=== PATIENT | male | born 2000 | race Caucasian/White ===

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

== ENCOUNTER → 2018-01-02 | Outpatient (CLI) | payer BC, MEDICAID ==
[~2018-01-02] MED LIST changes: +BREX0.5T; +CLON0.5T13 PO; -CLON0.5T3 PO; -ETOMIDATE IV SOLN 20 MG/10 ML VIAL IV ONE; +FLUO40CA; +LURA120T; -MIDAZOLAM 5 MG/5 ML (VERSED) VIAL IJ ONE; -SUCCINYLCHOLINE INJ 100 MG/5 ML SYR INJ ONE; -fentaNYL INJECTION 100 MCG/2 ML AMP INJ ONE
--- NOTE | 2018-01-02 15:14 | Diagnostic Imaging Report ---
PROCEDURE: US Thyroid. TECHNIQUE: Multiple real-time grayscale images were obtained of the thyroid in various projections. INDICATION: Thyroid nodule. FINDINGS: The right lobe of the thyroid measures 4.5 x 1.7 x 1.9 cm and the left lobe measures 4.1 x 1.4 x 1.6 cm. There is parenchymal heterogeneity but no discrete thyroid mass is identified. IMPRESSION: No discrete thyroid mass is detected. Dictated by: Dictated on workstation # [id number]
== END ==
LOC: RAD 14:03
PROVIDERS: ATTEND Nurse Practitioner Family
DX: E04.1 Nontoxic single thyroid nodule (principal)
CPT/HCPCS: 76536

== ENCOUNTER 2018-02-24 15:40 | Outpatient (RCR) | payer MEDICAID ==
[2018-02-24 16:04] LABS: ABSOLUTE RETIC # 40 10e9/L (24-90); BASOPHILS % (AUTO) 0 % (0-10); EOSINOPHILS # (AUTO) 0.5 10^3/uL (0.0-0.3); EOSINOPHILS % (AUTO) 7 % (0-10); HEMATOCRIT 47 % (40-54); HEMOGLOBIN 16.2 G/DL (13.3-17.7); LYMPHOCYTES # (AUTO) 2.7 X 10^3 (1.0-4.0); LYMPHOCYTES % (AUTO) 36 % (12-44); MEAN CORPUSCULAR HEMOGLOBIN 29 PG (25-34); MEAN CORPUSCULAR HGB CONC 35 G/DL (32-36); MEAN CORPUSCULAR VOLUME 83 FL (80-99); MEAN PLATELET VOLUME 10.7 FL (7.4-10.4); MONOCYTES # (AUTO) 0.3 X 10^3 (0.0-1.0); MONOCYTES % (AUTO) 5 % (0-12); NEUTROPHILS # (AUTO) 3.9 X 10^3 (1.8-7.8); NEUTROPHILS % (AUTO) 52 % (42-75); PLATELET COUNT 185 10^3/uL (130-400); RED BLOOD COUNT 5.66 10^6/uL (4.35-5.85); RED CELL DISTRIBUTION WIDTH 14.5 % (10.0-14.5); RETICULOCYTE % 0.71 % (0.50-2.40); WHITE BLOOD COUNT 7.5 10^3/uL (4.3-11.0)
[2018-02-24 16:20] LABS: ALANINE AMINOTRANSFERASE 14 U/L (0-55); ALBUMIN 4.4 GM/DL (3.2-4.5); ALKALINE PHOSPHATASE 84 U/L (40-136); BILIRUBIN,TOTAL 1.3 MG/DL (0.1-1.0); BUN/CREATININE RATIO 11; CALCIUM 9.9 MG/DL (8.5-10.1); CARBON DIOXIDE 24 MMOL/L (21-32); CHLORIDE 107 MMOL/L (98-107); CREATININE SERUM 0.87 MG/DL (0.60-1.30); GFR ESTIMATED > 60; GLUCOSE 102 MG/DL (70-105); SODIUM 139 MMOL/L (135-145); TOTAL PROTEIN 7.2 GM/DL (6.4-8.2)
== END 2018-03-22 | disposition home or self-care (01) ==
LOC: ONC 15:40
PROVIDERS: ATTEND Internal Medicine Hematology & Oncology
DX: D58.2 Other hemoglobinopathies (principal); L70.9 Acne, unspecified; F41.9 Anxiety disorder, unspecified; F32.9 Major depressive disorder, single episode, unspecified; F17.210 Nicotine dependence, cigarettes, uncomplicated; Z79.899 Other long term (current) drug therapy
CPT/HCPCS: 80053; 81270; 82668; 82728; 83540; 83615; 85025; 85045

== ENCOUNTER 2018-03-23 14:09 | Outpatient (RCR) | payer MEDICAID | END 2018-06-21 | disposition home or self-care (01) | LOC: ONC 14:09 | PROVIDERS: ATTEND Internal Medicine Hematology & Oncology | DX: D58.2 Other hemoglobinopathies (principal); L70.9 Acne, unspecified; F41.9 Anxiety disorder, unspecified; F32.9 Major depressive disorder, single episode, unspecified; F17.210 Nicotine dependence, cigarettes, uncomplicated; Z79.899 Other long term (current) drug therapy | CPT/HCPCS: 99214 ==

== ENCOUNTER 2019-10-04 15:42 | Emergency (ER) | payer SELFPAY ==
[~2019-10-04] VITALS: Ht 175.2 cm; Wt 68.0 kg
[~2019-10-04 15:42] MED LIST changes: -CLON0.5T13 PO; +CLON0.5T4 PO
[2019-10-04] MEDS ORDERED: LACTATED RINGERS 1,000 ML IV ONE (15:55)
[2019-10-04 16:07] LABS: BASOPHILS % (AUTO) 0 % (0-10); EOSINOPHILS # (AUTO) 0.3 10^3/uL (0.0-0.3); EOSINOPHILS % (AUTO) 3 % (0-10); HEMATOCRIT 49 % (40-54); HEMOGLOBIN 16.9 G/DL (13.3-17.7); LYMPHOCYTES # (AUTO) 1.4 X 10^3 (1.0-4.0); LYMPHOCYTES % (AUTO) 13 % (12-44); MEAN CORPUSCULAR HEMOGLOBIN 29 PG (25-34); MEAN CORPUSCULAR HGB CONC 35 G/DL (32-36); MEAN CORPUSCULAR VOLUME 83 FL (80-99); MEAN PLATELET VOLUME 9.9 FL (7.4-10.4); MONOCYTES # (AUTO) 0.4 X 10^3 (0.0-1.0); MONOCYTES % (AUTO) 4 % (0-12); NEUTROPHILS # (AUTO) 8.3 X 10^3 (1.8-7.8); NEUTROPHILS % (AUTO) 80 % (42-75); PLATELET COUNT 187 10^3/uL (130-400); RED CELL DISTRIBUTION WIDTH 13.5 % (10.0-14.5); WHITE BLOOD COUNT 10.5 10^3/uL (4.3-11.0)
[2019-10-04 16:17] LABS: ALBUMIN 4.8 GM/DL (3.2-4.5); CHLORIDE 105 MMOL/L (98-107); POTASSIUM 4.5 MMOL/L (3.6-5.0); SODIUM 140 MMOL/L (135-145)
[2019-10-04 16:18] LABS: CALCIUM 10.3 MG/DL (8.5-10.1)
[2019-10-04 16:19] LABS: GLUCOSE 149 MG/DL (70-105); TOTAL PROTEIN 8.1 GM/DL (6.4-8.2)
[2019-10-04 16:21] LABS: BILIRUBIN,TOTAL 1.4 MG/DL (0.1-1.0); CARBON DIOXIDE 22 MMOL/L (21-32)
[2019-10-04 16:23] LABS: ALKALINE PHOSPHATASE 76 U/L (40-136); CREATININE SERUM 1.21 MG/DL (0.60-1.30); GFR ESTIMATED > 60
[2019-10-04 16:24] LABS: BUN/CREATININE RATIO 7
--- NOTE | 2019-10-04 16:25 | ED Trauma-Multisystem ---
General Stated Complaint: SEIZURE Source of Information: Patient Exam Limitations: No Limitations History of Present Illness Date Seen by Provider: Oct 04, 2019 Time Seen by Provider: 15:51 Initial Comments Here with report of passing out and hitting his head while standing in the back of a pickup truck. He apparently had 3 minute seizure afterwards. He apparently was at the [facility] patient with his friends when this occurred. Admits that he has not ate anything today and really has only drank a little bit of water. He sometimes gets seizures when he is really tired and does admit that he is tired today because he didn't sleep well last night because of the cold front. Reports he has history of arthritis and gets achy joints when called friends come through. Has pain to both temples. He is unsure which side he hit his head on. He is otherwise back to normal now and answering questions appropriately and following commands. Denies other injury or concerns. Unsure if the seizure prec ipitated the fall and head injury or the fall and head injury precipitated the seizure. Did have nausea and vomiting. EMS gave 4 mg of Zofran IV and this seems to have helped quite a bit. Occurred: Just Prior to Arrival (approximately 45 minutes ago) Severity: Moderate Pain/Injury Location: Head Method of Injury: Fall Loss of Consciousness: Prolonged (Minutes) Associated Symptoms (Fall): No Abdominal Pain, No Chest Pain, No Confusion; Headache; No Muscle Spasms, No Nausea/Vomiting, No Neck Pain; Seizures; No Shortness of Air Allergies and Home Medications Allergies Coded Allergies: Penicillins (Verified Allergy, Unknown, 06/15/16) morphine (Verified Allergy, Unknown, 06/15/16) Patient Home Medication List Home Medication List Reviewed: Yes Review of Systems Review of Systems Constitutional: see HPI; No chills, No fever Eyes: No Symptoms Reported Ears: No Symptoms Reported Nose: No Symptoms Reported Mouth: No Symptoms Reported Throat: No Symptoms to Report Respiratory: no symptoms reported Cardiovascular: No Symptoms Reported Gastrointestinal: nausea, vomiting Genitourinary: no symptoms reported Musculoskeletal: no symptoms reported Skin: no symptoms reported Psychiatric/Neurological: See HPI, Headache, Tonic Clonic Seizures All Other Systems Reviewed Negative Unless Noted: Yes Past Bkugwid-Gdczoh-Kygvbz Hx Past Med/Social Hx: Reviewed Nursing Past Med/Soc Hx Patient Social History Alcohol Use: Denies Use Recreational Drug Use: No Smoking Status: Current Everyday Smoker Type Used: Cigarettes, Smokeless Tobacco Recent Hopitalizations: No Immunizations Up To Date Tetanus Booster (TDap): Less than 5yrs PED Vaccines UTD: Yes Seasonal Allergies Seasonal Allergies: No Past Medical History Surgeries: No Respiratory: Yes Asthma Cardiac: No Neurological: Yes Seizure Disorder Reproductive Disorders: No Sexually Transmitted Disease: No HIV/AIDS: No Gastrointestinal: Yes Ulcer Musculoskeletal: Yes Scoliosis Sleep Difficulties, Anxiety, Suicide Attempts, Depression Adverse Reaction/Blood Tranf: No Family Medical History Reviewed Nursing Family Hx Abdominal aortic aneurysm Alcoholism Dementia Family history: Arthritis Family history: Asthma Family history: Cardiovascular disease Family history: Hypertension Family history: Thyroid disorder History of - anemia Parkinson's disease Visual impairment No Family History of: Cancer Family history: Coronary thrombosis Family history: Diabetes mellitus Family history: Gastrointestinal disease History of - respiratory disease Kidney disease Seizure disorder Stroke Heart Disease Physical Exam Vital Signs Vital Signs - First Documented 10/04/19 15:42 Temp 36.7 Pulse 90 Resp 20 B/P (MAP) 100/72 (81) Pulse Ox 98 O2 Delivery Room Air Height, Weight, BMI Height: 6'0" Weight: 200lbs. oz. [id number]; 27.12 BMI Method:Estimated General Appearance: No Apparent Distress, WD/WN Head: Other (. No obvious injury noted); No Contusions, No Raccoon Eyes Ears, Nose, Throat: Hearing Grossly Normal, No Evidence of ENT Injury, No Dental Injury Cardiovascular: Regular Rate, Rhythm, No Murmur Respiratory: Lungs Clear, Normal Breath Sounds Gastrointestinal: Non Tender, Soft Back: Normal Inspection, No CVA Tenderness Neurologic/Psychiatric: Alert, Oriented x3, No Motor/Sensory Deficits, Normal Mood/Affect Skin: Normal Color, Warm/Dry Procedures/Interventions Time of ETT Placement: 1654 Progress/Results/Core Measures Results/Orders Lab Results Laboratory Tests Test 10/04/19 15:57 Range/Units White Blood Count 10.5 4.3-11.0 10^3/uL Red Blood Count 5.93 H 4.35-5.85 10^6/uL Hemoglobin 16.9 13.3-17.7 G/DL Hematocrit 49 40-54 % Mean Corpuscular Volume 83 80-99 FL Mean Corpuscular Hemoglobin 29 25-34 PG Mean Corpuscular Hemoglobin Concent 35 32-36 G/DL Red Cell Distribution Width 13.5 10.0-14.5 % Platelet Count 187 130-400 10^3/uL Mean Platelet Volume 9.9 7.4-10.4 FL Neutrophils (%) (Auto) 80 H 42-75 % Lymphocytes (%) (Auto) 13 12-44 % Monocytes (%) (Auto) 4 0-12 % Eosinophils (%) (Auto) 3 0-10 % Basophils (%) (Auto) 0 0-10 % Neutrophils # (Auto) 8.3 H 1.8-7.8 X 10^3 Lymphocytes # (Auto) 1.4 1.0-4.0 X 10^3 Monocytes # (Auto) 0.4 0.0-1.0 X 10^3 Eosinophils # (Auto) 0.3 0.0-0.3 10^3/uL Basophils # (Auto) 0.0 0.0-0.1 10^3/uL Sodium Level 140 135-145 MMOL/L Potassium Level 4.5 3.6-5.0 MMOL/L Chloride Level 105 98-107 MMOL/L Carbon Dioxide Level 22 21-32 MMOL/L Anion Gap 13 5-14 MMOL/L Blood Urea Nitrogen 9 7-18 MG/DL Creatinine 1.21 0.60-1.30 MG/DL Estimat Glomerular Filtration Rate > 60 BUN/Creatinine Ratio 7 Glucose Level 149 H 70-105 MG/DL Calcium Level 10.3 H 8.5-10.1 MG/DL Corrected Calcium 8.5-10.1 MG/DL Magnesium Level 3.2 H 1.6-2.4 MG/DL Total Bilirubin 1.4 H 0.1-1.0 MG/DL Aspartate Amino Transf (AST/SGOT) 21 5-34 U/L Alanine Aminotransferase (ALT/SGPT) 18 0-55 U/L Alkaline Phosphatase 76 40-136 U/L Total Protein 8.1 6.4-8.2 GM/DL Albumin 4.8 H 3.2-4.5 GM/DL Thyroid Stimulating Hormone (TSH) 1.95 0.35-4.94 UIU/ML My Orders Orders - PADMINI SPRINGER MD Ed Iv/Invasive Line Start (10/04/19 15:55) Lactated Ringers (Lr 1000 Ml Iv Solution (10/04/19 15:55) Cbc With Automated Diff (10/04/19 15:55) Comprehensive Metabolic Panel (10/04/19 15:55) Magnesium (10/04/19 15:55) Thyroid Stimulating Hormone (10/04/19 15:55) Ct Head/Cervical Spine Wo (10/04/19 15:55) Ekg Tracing (10/04/19 16:54) Medications Given in ED Current Medications Medications Dose Ordered Sig/Aleksander Route Start Time Stop Time Status Last Admin Dose Admin Lactated Ringer's 1,000 ml @ 0 mls/hr Q0M ONCE IV 10/04/19 15:55 10/04/19 15:59 DC 10/04/19 16:28 1,000 MLS/HR Vital Signs/I&O 10/04/19 15:42 Temp 36.7 Pulse 90 Resp 20 B/P (MAP) 100/72 (81) Pulse Ox 98 O2 Delivery Room Air Progress Progress Note : Progress Note Seen and evaluated. IV by EMS. Labs, CT head and neck and LR 1 L bolus ordered. Monitor patient. 1636: C collar removed. Full range of motion without difficulty. Patient is overall feeling much better. We are awaiting for fluid bolus completion and a few labs. Otherwise doing well. Monitor patient. 06/29/08: Labs complete with no significant findings. Discharged home with return precautions. Patient verbalize understanding instructions and agreement with plan. I did discuss with the patient about seizure precautions and he is not to drive until cleared by his doctor. He verbalized understanding. Diagnostic Imaging Diagonstic Imaging: CT Plain Films/CT/US/NM/MRI: c-spine, head Comments PHYSICIAN: PADMINI SPRINGER MD ADMIT DATE: 10/04/19/ER Draft Date of Exam:10/04/19 CT HEAD/CERVICAL SPINE WO PROCEDURE: CT head and CT cervical spine without contrast. TECHNIQUE: Multiple contiguous axial images were obtained through the brain and cervical spine without the use of intravenous contrast. Sagittal and coronal reformations through the cervical spine were then performed. Auto Exposure Controls were utilized during the CT exam to meet ALARA standards for radiation dose reduction. INDICATION: Seizure with headache and dizziness and blurry vision. COMPARISON: Comparison is made with prior examination from 07/03/2016. FINDINGS: The ventricles and sulci are within normal limits. There is no hydrocephalus or cerebral edema. There is no midline shift or mass effect. There is no intracranial mass, hemorrhage or extra-axial fluid collection. The visualized paranasal sinuses and mastoid air cells are clear. No fractures are identified. CERVICAL SPINE: Alignment is normal. There is no fracture or traumatic subluxation. The prevertebral soft tissues are within normal limits. The odontoid is intact and the lateral masses are well aligned. There are no soft tissue abnormalities. IMPRESSION: 1. No acute intracranial process. 2. No focal abnormality in the cervical spine. Dictated on workstation # [id number] Dict: 10/04/19 1624 Trans: 10/04/19 1629 [id number] Interpreted by: ROSE RAMIREZ MD Electronically signed by: Departure Impression Primary Impression: Head injury, acute Qualified Codes: S09.90XA - Unspecified injury of head, initial encounter Additional Impression: Seizures Disposition: 01 HOME, SELF-CARE Condition: Improved Departure-Patient Inst. Decision time for Depature: 16:46 Referrals: SUMIT LAYNE DO (PCP) Primary Care Physician Patient Instructions: Seizures, Traumatic Brain Injury (DC) Add. Discharge Instructions: Continue home medications as previously prescribed. Drink plenty of fluids and eat a normal diet. Since your seizures seem to be related to fatigue (tiredness) you should get plenty of rest. Follow-up with your doctor this week for recheck and further evaluation. Return for worse pain, fever, vomiting, weakness, breathing problems, seizures or other concerns as needed. Copy Copies To 1: ONEL WALLS TIMOTHY D MD Oct 04, 2019 16:25
[2019-10-04 16:26] LABS: ALANINE AMINOTRANSFERASE 18 U/L (0-55); MAGNESIUM 3.2 MG/DL (1.6-2.4)
--- NOTE | 2019-10-04 16:30 | Diagnostic Imaging Report ---
PROCEDURE: CT head and CT cervical spine without contrast. TECHNIQUE: Multiple contiguous axial images were obtained through the brain and cervical spine without the use of intravenous contrast. Sagittal and coronal reformations through the cervical spine were then performed. Auto Exposure Controls were utilized during the CT exam to meet ALARA standards for radiation dose reduction. INDICATION: Seizure with headache and dizziness and blurry vision. COMPARISON: Comparison is made with prior examination from 07/03/2016. FINDINGS: The ventricles and sulci are within normal limits. There is no hydrocephalus or cerebral edema. There is no midline shift or mass effect. There is no intracranial mass, hemorrhage or extra-axial fluid collection. The visualized paranasal sinuses and mastoid air cells are clear. No fractures are identified. CERVICAL SPINE: Alignment is normal. There is no fracture or traumatic subluxation. The prevertebral soft tissues are within normal limits. The odontoid is intact and the lateral masses are well aligned. There are no soft tissue abnormalities. IMPRESSION: 1. No acute intracranial process. 2. No focal abnormality in the cervical spine. Dictated by: Dictated on workstation # [id number]
[2019-10-04 17:30] VITALS: BP 109/65
== END 2019-10-04 17:30 | disposition home or self-care (01) ==
LOC: EDUNIT# 15:42 → ER 15:43
DX: G40.909 Epilepsy, unspecified, not intractable, without status epilepticus (principal); S09.90XA Unspecified injury of head, initial encounter; W19.XXXA Unspecified fall, initial encounter; M41.9 Scoliosis, unspecified; M32.9 Systemic lupus erythematosus, unspecified; J45.909 Unspecified asthma, uncomplicated; Z87.19 Personal history of other diseases of the digestive system; F17.210 Nicotine dependence, cigarettes, uncomplicated; Z88.5 Allergy status to narcotic agent; Z88.0 Allergy status to penicillin
CPT/HCPCS: 36415; 70450; 72125; 80053; 83735; 84443; 85025

== ENCOUNTER 2022-01-26 08:20 | Emergency (ER) | payer SELFPAY ==
[~2022-01-26] VITALS: Ht 193 cm; Wt 84.3 kg
[~2022-01-26 08:20] MED LIST changes: +CYCL10TA25 PO; -CYCL10TA9 PO; -TRIH5TAB2 PO; +TRIH5TAB7 PO
--- NOTE | 2022-01-26 09:16 | ED Neurological Problem ---
General Chief Complaint: Neurological Problems Stated Complaint: SEIZURE ACTIVITY Nursing Triage Note: pt presents to ed via pov from home accompanied by mother with complaints of seizure like activity lasting aprox 1 min this am around 0730. pt reports he has no previous hx of seizures. pt did drink two energy drinks prior to seizure. pt also reports he ran out of his lunesta 3 days ago and hasnt slept well since. pt mother reports she heard him fall from a standing position and start seizing. pt reports mild neck pain. Source: patient, family (mother) Exam Limitations: no limitations History of Present Illness Date Seen by Provider: Jan 26, 2022 Time Seen by Provider: 09:00 Initial Comments Patient is a 21-year-old male who presents to the emergency department with his mother, chief complaint of a "seizure" this morning. This occurred at about 730 this morning. Patient reportedly let out a yell while in his room, his mother heard a "thud" and walked into the room to find him laying on a carpeted floor facedown shaking all over. She states he was "foaming". He looked like his eyes were swollen. She states it lasted maybe about a minute and gradually stopped. He reported to the nurse that he had no history of seizures however he tells me that he has had "many" especially with "lack of sleep". He states that he got about 5 hours last night. He is recently been out of his Lunesta. This is prescribed through [facility]. He denies any recent illnesses such as fevers, chills, cough or congestion. No ingestions. He has a long history of depression with previous suicide attempts. He denies any attempt this morning. Mom's first thought was "did he overdose". He has a little neck discomfort. He does have a small abrasion to the right lateral forehead. He is completely back to his normal baseline according to mother now. He has a brother with epilepsy. Patient does admit to THC use. He does vape nicotine. He had 2 energy drinks just prior to this at around 7 AM this morning. All other review of systems reviewed and negative except as stated. Timing/Duration: 1-3 hours Severity: severe Associated Symptoms: other (neck discomfort) Allergies and Home Medications Allergies Coded Allergies: Penicillins (Verified Allergy, Unknown, 06/15/16) morphine (Verified Allergy, Unknown, 06/15/16) Patient Home Medication List Home Medication List Reviewed: Yes Brexpiprazole (Rexulti) 0.5 Mg Tablet, (Reported) Entered as Reported by: MICHAEL NELSON on 09/19/16731 Fluoxetine HCl (Fluoxetine HCl) 40 Mg Capsule, 60 MG, (Reported) Entered as Reported by: MICHAEL NELSON on 09/19/16731 Lurasidone HCl (Latuda) 120 Mg Tablet, (Reported) Entered as Reported by: MICHAEL NELSON on 09/19/16731 Review of Systems Review of Systems Constitutional: see HPI Eyes: No Symptoms Reported Ears, Nose, Mouth, Throat: no symptoms reported Respiratory: no symptoms reported Cardiovascular: no symptoms reported Gastrointestinal: no symptoms reported Genitourinary: no symptoms reported Musculoskeletal: neck pain Skin: other (abrasion) Psychiatric/Neurological: Other (seizure) All Other Systems Reviewed Negative Unless Noted: Yes Past Kkfzrpy-Jpeuhp-Viylcb Hx Patient Social History Tobacco Use?: No Use of E-Cig and/or Vaping dev: Yes E-Cig or Vaping type used: Nicotine Substance use?: Yes Substance type: Marijuana Alcohol Use?: Yes Alcohol Frequency: Rarely Pt feels they are or have been: No Immunizations Up To Date Tetanus Booster (TDap): Less than 5yrs PED Vaccines UTD: Yes First/Initial COVID19 Vaccinat: yes Second COVID19 Vaccination Caleb: yes COVID19 Vaccine Dredge Runner: estrellita Seasonal Allergies Seasonal Allergies: No Past Medical History Surgery/Hospitalization HX: pmh: sleep issues, depression. Surgeries: No Respiratory: Yes Asthma Cardiac: No Neurological: Yes Seizure Disorder Reproductive Disorders: No Sexually Transmitted Disease: No HIV/AIDS: No Gastrointestinal: Yes Ulcer Musculoskeletal: Yes Scoliosis Endocrine: No Cancer: No Psychosocial: Yes (HX OF DEPRESSION,SUICIDE ATTEMPTS) Sleep Difficulties, Anxiety, Suicide Attempts, Depression Integumentary: No Blood Disorders: No Adverse Reaction/Blood Tranf: No Family Medical History Abdominal aortic aneurysm Alcoholism Dementia Family history: Arthritis Family history: Asthma Family history: Cardiovascular disease Family history: Hypertension Family history: Thyroid disorder History of - anemia Parkinson's disease Visual impairment No Family History of: Cancer Family history: Coronary thrombosis Family history: Diabetes mellitus Family history: Gastrointestinal disease History of - respiratory disease Kidney disease Seizure disorder Stroke Heart Disease Physical Exam Vital Signs Vital Signs - First Documented 01/26/22 08:55 Temp 36.9 Pulse 77 Resp 16 B/P (MAP) 114/74 (87) Pulse Ox 98 Capillary Refill : Less Than 3 Seconds Height, Weight, BMI Height: 6'0" Weight: 200lbs. oz. [id number]; 22.00 BMI Method:Estimated General Appearance: WD/WN, no apparent distress HEENT: PERRL/EOMI, normal ENT inspection, TMs normal, pharynx normal, other (slightly edematous bottom lip - no open wounds) Neck: non-tender, full range of motion, supple, normal inspection Respiratory: chest non-tender, lungs clear, normal breath sounds, no respiratory distress, no accessory muscle use Cardiovascular: regular rate, rhythm Gastrointestinal: normal bowel sounds, non tender, soft Extremities: normal range of motion, non-tender, normal inspection, no pedal edema, normal capillary refill Neurologic/Psychiatric: car starter II-XII nml as tested, no motor/sensory deficits, alert, normal mood/affect, oriented x 3 Crainal Nerves: normal hearing, normal speech, PERRL Coordination/Gait: normal gait Motor/Sensory: no motor deficit, no sensory deficit Skin: normal color, warm/dry, other (small abrasion at hairline right forehead) Procedures/Interventions Time of ETT Placement: 1654 Progress/Results/Core Measures Results/Orders Lab Results Laboratory Tests Test 01/26/22 09:01 01/26/22 09:12 01/26/22 10:01 Range/Units Glucometer 97 70-110 MG/DL White Blood Count 9.1 4.3-11.0 10^3/uL Red Blood Count 4.84 4.30-5.52 10^6/uL Hemoglobin 14.3 13.3-17.7 g/dL Hematocrit 42 40-54 % Mean Corpuscular Volume 87 80-99 fL Mean Corpuscular Hemoglobin 30 25-34 pg Mean Corpuscular Hemoglobin Concent 34 32-36 g/dL Red Cell Distribution Width 15.1 H 10.0-14.5 % Platelet Count 176 130-400 10^3/uL Mean Platelet Volume 9.8 9.0-12.2 fL Immature Granulocyte % (Auto) 1 % Neutrophils (%) (Auto) 62 42-75 % Lymphocytes (%) (Auto) 23 12-44 % Monocytes (%) (Auto) 6 0-12 % Eosinophils (%) (Auto) 7 0-10 % Basophils (%) (Auto) 0 0-10 % Neutrophils # (Auto) 5.6 1.8-7.8 10^3/uL Lymphocytes # (Auto) 2.1 1.0-4.0 10^3/uL Monocytes # (Auto) 0.6 0.0-1.0 10^3/uL Eosinophils # (Auto) 0.6 H 0.0-0.3 10^3/uL Basophils # (Auto) 0.0 0.0-0.1 10^3/uL Immature Granulocyte # (Auto) 0.1 0.0-0.1 10^3/uL Sodium Level 137 135-145 MMOL/L Potassium Level 3.8 3.6-5.0 MMOL/L Chloride Level 103 98-107 MMOL/L Carbon Dioxide Level 25 21-32 MMOL/L Anion Gap 9 5-14 MMOL/L Blood Urea Nitrogen 7 7-18 MG/DL Creatinine 0.98 0.60-1.30 MG/DL Estimat Glomerular Filtration Rate 111 BUN/Creatinine Ratio 7 Glucose Level 98 70-105 MG/DL Calcium Level 9.3 8.5-10.1 MG/DL Corrected Calcium 9.2 8.5-10.1 MG/DL Total Bilirubin 0.5 0.1-1.0 MG/DL Aspartate Amino Transf (AST/SGOT) 26 5-34 U/L Alanine Aminotransferase (ALT/SGPT) 24 0-55 U/L Alkaline Phosphatase 50 40-136 U/L Total Protein 6.8 6.4-8.2 GM/DL Albumin 4.1 3.2-4.5 GM/DL Salicylates Level < 5.0 L 5.0-20.0 MG/DL Acetaminophen Level < 10 L 10-30 UG/ML Serum Alcohol < 10 <10 MG/DL Urine Color YELLOW Urine Clarity CLEAR Urine pH 6.0 5-9 Urine Specific [place] 1.015 L 1.016-1.022 Urine Protein NEGATIVE NEGATIVE Urine Glucose (UA) NEGATIVE NEGATIVE Urine Ketones NEGATIVE NEGATIVE Urine Nitrite NEGATIVE NEGATIVE Urine Bilirubin NEGATIVE NEGATIVE Urine Urobilinogen 0.2 < = 1.0 MG/DL Urine Leukocyte Esterase NEGATIVE NEGATIVE Urine RBC (Auto) NEGATIVE NEGATIVE Urine RBC NONE /HPF Urine WBC NONE /HPF Urine Squamous Epithelial Cells RARE /HPF Urine Crystals NONE /LPF Urine Bacteria NEGATIVE /HPF Urine Casts NONE /LPF Urine Mucus NEGATIVE /LPF Urine Culture Indicated NO Urine Opiates Screen NEGATIVE NEGATIVE Urine Oxycodone Screen NEGATIVE NEGATIVE Urine Methadone Screen NEGATIVE NEGATIVE Urine Propoxyphene Screen NEGATIVE NEGATIVE Urine Barbiturates Screen NEGATIVE NEGATIVE Ur Tricyclic Antidepressants Screen NEGATIVE NEGATIVE Urine Phencyclidine Screen NEGATIVE NEGATIVE Urine Amphetamines Screen NEGATIVE NEGATIVE Urine Methamphetamines Screen NEGATIVE NEGATIVE Urine Benzodiazepines Screen NEGATIVE NEGATIVE Urine Cocaine Screen NEGATIVE NEGATIVE Urine Cannabinoids Screen POSITIVE H NEGATIVE My Orders Orders - NIGHAT RICK MD Ua Culture If Indicated (01/26/22 08:58) Cbc With Automated Diff (01/26/22 08:58) Comprehensive Metabolic Panel (01/26/22 08:58) Alcohol (01/26/22 08:58) Drug Screen Stat (Urine) (01/26/22 08:58) Acetaminophen (01/26/22 08:58) Salicylate (01/26/22 08:58) Ekg Tracing (01/26/22 08:58) Ed Iv/Invasive Line Start (01/26/22 08:58) Monitor-Rhythm Ecg Trace Only (01/26/22 08:58) Bh Status Checks/Observation O Q15M (01/26/22 08:58) Ed Iv/Invasive Line Start (01/26/22 08:58) Accucheck Stat ONCE (01/26/22 08:58) Vital Signs/I&O 01/26/22 08:55 Temp 36.9 Pulse 77 Resp 16 B/P (MAP) 114/74 (87) Pulse Ox 98 Blood Pressure Mean: 87 FSBG Bedside Testing Finger Stick Blood Glucose: 97 Blood Glucose Action Taken: RN AND PHYSICIAN NOTIFIED Progress Progress Note : Time: 10:44 Progress Note Patient reassessed, comfortable, vital signs are stable. No repeat of seizure- like activity. I have reviewed all of his labs, everything is reassuring. He is positive for cannabis that he admitted to taking. I spoke with mom about him getting good rest, nutrition and hydration. She states she was able to talk to community health today and they refilled his Lunesta. We discussed follow-up with neurology, she thinks that she might want to follow-up with Dr. Walker at [facility] in [place], I will provide his contact information on the paperwork. All questions are sought and answered. Patient has no clinical or objective findings to warrant further studies from the emergency department he is stable for discharge. Initial ECG Impression Date: Jan 26, 2022 Initial ECG Impression Time: 09:07 Initial ECG Rate: 76 Initial ECG Rhythm: Normal Sinus Initial ECG Intervals: Normal Initial ECG Intervals ST-T wave flattening with T wave inversion in lead III and aVF. Normal intervals. No ectopy. No ST segment elevation or depression is noted. Departure Impression Primary Impression: Seizure Disposition: 01 HOME, SELF-CARE Condition: Improved Departure-Patient Inst. Decision time for Depature: 10:45 Referrals: YOUNG CASTANEDA MD (PCP/Family) Primary Care Physician Patient Instructions: Seizures, Adult ED Add. Discharge Instructions: Please follow-up with the neurologist of your choice. Avoid doing anything that might put you at risk for you to have a seizure such as swimming, climbing ladders and driving until you are cleared by neurology. Return to the emergency room for any seizure that lasts greater than 5 minutes or if you have an associated fever and headache. Continue daily medications as prescribed by your primary care physician. Dr Irwin Walker; [facility], [address] [place] [phone] Copy Copies To 1: YOUNG CASTANEDA MD, KATHRYN M MD Jan 26, 2022 09:16
[2022-01-26 09:19] LABS: BASOPHILS % (AUTO) 0 % (0-10); EOSINOPHILS # (AUTO) 0.6 10^3/uL (0.0-0.3); EOSINOPHILS % (AUTO) 7 % (0-10); HEMATOCRIT 42 % (40-54); HEMOGLOBIN 14.3 g/dL (13.3-17.7); LYMPHOCYTES # (AUTO) 2.1 10^3/uL (1.0-4.0); LYMPHOCYTES % (AUTO) 23 % (12-44); MEAN CORPUSCULAR HEMOGLOBIN 30 pg (25-34); MEAN CORPUSCULAR HGB CONC 34 g/dL (32-36); MEAN CORPUSCULAR VOLUME 87 fL (80-99); MEAN PLATELET VOLUME 9.8 fL (9.0-12.2); MONOCYTES # (AUTO) 0.6 10^3/uL (0.0-1.0); MONOCYTES % (AUTO) 6 % (0-12); NEUTROPHILS # (AUTO) 5.6 10^3/uL (1.8-7.8); NEUTROPHILS % (AUTO) 62 % (42-75); PLATELET COUNT 176 10^3/uL (130-400); WHITE BLOOD COUNT 9.1 10^3/uL (4.3-11.0)
[2022-01-26 09:33] LABS: CHLORIDE 103 MMOL/L (98-107); POTASSIUM 3.8 MMOL/L (3.6-5.0); SODIUM 137 MMOL/L (135-145)
[2022-01-26 09:34] LABS: ALBUMIN 4.1 GM/DL (3.2-4.5)
[2022-01-26 09:35] LABS: CALCIUM 9.3 MG/DL (8.5-10.1)
[2022-01-26 09:36] LABS: GLUCOSE 98 MG/DL (70-105); TOTAL PROTEIN 6.8 GM/DL (6.4-8.2)
[2022-01-26 09:37] LABS: CARBON DIOXIDE 25 MMOL/L (21-32)
[2022-01-26 09:38] LABS: BILIRUBIN,TOTAL 0.5 MG/DL (0.1-1.0)
[2022-01-26 09:40] LABS: ALKALINE PHOSPHATASE 50 U/L (40-136); CREATININE SERUM 0.98 MG/DL (0.60-1.30); GFR ESTIMATED 111
[2022-01-26 09:41] LABS: BUN/CREATININE RATIO 7
[2022-01-26 09:42] LABS: ACETAMINOPHEN < 10 UG/ML (10-30)
[2022-01-26 09:43] LABS: ALANINE AMINOTRANSFERASE 24 U/L (0-55); SALICYLATE < 5.0 MG/DL (5.0-20.0)
[2022-01-26 10:16] LABS: BILIRUBIN,URINE NEGATIVE (NEGATIVE); CLARITY,URINE CLEAR; COLOR,URINE YELLOW; GLUCOSE, URINE (UA) NEGATIVE (NEGATIVE); KETONES,URINE NEGATIVE (NEGATIVE); LEUKOCYTE ESTERASE ,URINE NEGATIVE (NEGATIVE); NITRITE,URINE NEGATIVE (NEGATIVE); PROTEIN,URINE NEGATIVE (NEGATIVE)
[2022-01-26 10:24] LABS: AMPHETAMINE SCREEN, URINE NEGATIVE (NEGATIVE); BACTERIA,URINE NEGATIVE /HPF; BARBITURATE SCREEN URINE NEGATIVE (NEGATIVE); BENZODIAZEPINES SCREEN URINE NEGATIVE (NEGATIVE); CANNABINOID SCREEN, URINE POSITIVE (NEGATIVE); COCAINE SCREEN URINE NEGATIVE (NEGATIVE); METHADONE STAT NEGATIVE (NEGATIVE); OPIATE SCREEN URINE NEGATIVE (NEGATIVE); OXYCODONE STAT NEGATIVE (NEGATIVE); PROPOXYPHENE STAT NEGATIVE (NEGATIVE); SQUAMOUS EPITHELIAL CELL,UR RARE /HPF; TRICYCLIC ANTIDEPRESSANTS SCRE NEGATIVE (NEGATIVE)
[2022-01-26 10:57] VITALS: BP 113/78
== END 2022-01-26 10:57 | disposition home or self-care (01) ==
LOC: EDUNIT# 08:20 → ER 08:22
DX: G40.909 Epilepsy, unspecified, not intractable, without status epilepticus (principal); F17.290 Nicotine dependence, other tobacco product, uncomplicated
CPT/HCPCS: 80053; 80306; 81000; 82947; 85025; 93005; 93041; 99284; G0480 ×3; 36415; 80320; 80329

== ENCOUNTER 2022-07-22 19:02 | Emergency (ER) | payer SELFPAY ==
[~2022-07-22] VITALS: Ht 193 cm; Wt 113.0 kg
--- NOTE | 2022-07-22 19:25 | ED General ---
General Chief Complaint: Allergic Reaction Stated Complaint: ALLERGIC REACTION, THROAT FEELS LIKE ITS SWELLING Source of Information: Patient, Other (MOTHER) History of Present Illness Date Seen by Provider: Jul 22, 2022 Time Seen by Provider: 19:15 Initial Comments PT ARRIVES VIA POV FROM HOME WITH MOTHER PT THINKS HE IS HAVING AN ALLERGIC REACTION PT ATE A "[employer]" [employer]AND[employer] BAR, WHICH HAS HAZELNUTS, AND APPROXIMATELY 30 MINUTES OR LESS, HE BEGAN TO HAVE THROAT PAIN AND FEELING LIKE HIS THROAT IS SWELLING NO RASH OR ITCHING ANYWHERE NO SWELLING OF LIPS OR TONGUE OR FACE PT IS ABLE TO SWALLOW LIQUIDS AND SALIVA HE DID VOMIT X 1 PRIOR TO ARRIVAL. NO FEVER OR URI SYMPTOMS NO DIFFICULTY BREATHING VOICE IS NORMAL PT TOOK 25 MG BENADRYL JUST PRIOR TO ARRIVAL HAS HAD THIS ONE OTHER TIME, AFTER EATING GUILLE NUTS WHEN HE WAS 11 OR 12. PCP: [facility]: [facility] [place] Allergies and Home Medications Allergies Coded Allergies: Penicillins (Verified Allergy, Unknown, 06/15/16) morphine (Verified Allergy, Unknown, 06/15/16) Patient Home Medication List Home Medication List Reviewed: Yes Brexpiprazole (Rexulti) 0.5 Mg Tablet, (Reported) Entered as Reported by: MICHAEL NELSON on 09/19/16 0732 Fluoxetine HCl (Fluoxetine HCl) 40 Mg Capsule, 60 MG, (Reported) Entered as Reported by: MICHAEL NELSON on 09/19/16 0732 Lurasidone HCl (Latuda) 120 Mg Tablet, (Reported) Entered as Reported by: MICHAEL NELSON on 09/19/16 0732 Review of Systems Review of Systems Constitutional: no symptoms reported EENTM: see HPI Respiratory: no symptoms reported Past Owuyadp-Jkqvus-Iyonjq Hx Immunizations Up To Date Tetanus Booster (TDap): Less than 5yrs PED Vaccines UTD: Yes First/Initial COVID19 Vaccinat: yes Second COVID19 Vaccination Caleb: yes Seasonal Allergies Seasonal Allergies: No Past Medical History Surgery/Hospitalization HX: pmh: sleep issues, depression. Surgeries: No Respiratory: Yes (INTUBATED 2017 DUE TO INTENTIONAL DRUG OVERDOSE) Asthma Cardiac: No Neurological: Yes Seizure Disorder Reproductive Disorders: No Sexually Transmitted Disease: No HIV/AIDS: No Gastrointestinal: Yes Ulcer Musculoskeletal: Yes Scoliosis Endocrine: No HEENT: No Cancer: No Psychosocial: Yes (HX OF DEPRESSION; MULTIPLE SUICIDE ATTEMPTS) Sleep Difficulties, Anxiety, Suicide Attempts, Depression Integumentary: No Blood Disorders: No Adverse Reaction/Blood Tranf: No Family Medical History Abdominal aortic aneurysm Alcoholism Dementia Family history: Arthritis Family history: Asthma Family history: Cardiovascular disease Family history: Hypertension Family history: Thyroid disorder History of - anemia Parkinson's disease Visual impairment No Family History of: Cancer Family history: Coronary thrombosis Family history: Diabetes mellitus Family history: Gastrointestinal disease History of - respiratory disease Kidney disease Seizure disorder Stroke Heart Disease Physical Exam Vital Signs Vital Signs - First Documented 07/22/22 19:08 Temp 36.1 Pulse 92 Resp 18 B/P (MAP) 143/94 (110) Pulse Ox 97 O2 Delivery Room Air Capillary Refill : Height, Weight, BMI Height: 6'0" Weight: 200lbs. oz. 90.435365ff; 22.00 BMI Method:Estimated General Appearance: No Apparent Distress, WD/WN HEENT: PERRL/EOMI, TMs Normal, Normal ENT Inspection, Pharynx Normal, Moist Mucous Membranes, Other (NO OBVIOUS SWELLING TO ORAL CAVITY OR PHARYNX. VOICE IS VERY SLIGHTLY MUFFLED / RASPY) Neck: Normal Inspection Respiratory: Normal Breath Sounds, No Accessory Muscle Use, No Respiratory Distress Cardiovascular: Regular Rate, Rhythm, No Murmur Gastrointestinal: Soft Extremity: Normal Capillary Refill, Normal Inspection, No Pedal Edema Neurologic/Psychiatric: Alert, Oriented x3, No Motor/Sensory Deficits, linker up II- XII Norm as Tested, Other (FLAT AFFECT) Skin: Normal Color, Warm/Dry; No Rash Procedures/Interventions Time of ETT Placement: 1654 Progress/Results/Core Measures Suspected Sepsis SIRS Temperature: Pulse: Respiratory Rate: Laboratory Tests 07/22/22 19:20: White Blood Count 8.4 Blood Pressure / Mean: Laboratory Tests 07/22/22 19:20: Creatinine 0.99, Platelet Count 218, Total Bilirubin 1.0 Results/Orders Lab Results Laboratory Tests Test 07/22/22 19:20 07/22/22 19:30 Range/Units White Blood Count 8.4 4.3-11.0 10^3/uL Red Blood Count 5.59 H 4.30-5.52 10^6/uL Hemoglobin 16.3 13.3-17.7 g/dL Hematocrit 46 40-54 % Mean Corpuscular Volume 82 80-99 fL Mean Corpuscular Hemoglobin 29 25-34 pg Mean Corpuscular Hemoglobin Concent 36 32-36 g/dL Red Cell Distribution Width 12.9 10.0-14.5 % Platelet Count 218 130-400 10^3/uL Mean Platelet Volume 9.6 9.0-12.2 fL Immature Granulocyte % (Auto) 0 % Neutrophils (%) (Auto) 62 42-75 % Lymphocytes (%) (Auto) 26 12-44 % Monocytes (%) (Auto) 7 0-12 % Eosinophils (%) (Auto) 5 0-10 % Basophils (%) (Auto) 0 0-10 % Neutrophils # (Auto) 5.2 1.8-7.8 10^3/uL Lymphocytes # (Auto) 2.2 1.0-4.0 10^3/uL Monocytes # (Auto) 0.5 0.0-1.0 10^3/uL Eosinophils # (Auto) 0.4 H 0.0-0.3 10^3/uL Basophils # (Auto) 0.0 0.0-0.1 10^3/uL Immature Granulocyte # (Auto) 0.0 0.0-0.1 10^3/uL Erythrocyte Sedimentation Rate 4 0-15 MM/HR Sodium Level 137 135-145 MMOL/L Potassium Level 3.5 L 3.6-5.0 MMOL/L Chloride Level 102 98-107 MMOL/L Carbon Dioxide Level 22 21-32 MMOL/L Anion Gap 13 5-14 MMOL/L Blood Urea Nitrogen 15 7-18 MG/DL Creatinine 0.99 0.60-1.30 MG/DL Estimat Glomerular Filtration Rate 109 BUN/Creatinine Ratio 15 Glucose Level 120 H 70-105 MG/DL Calcium Level 9.8 8.5-10.1 MG/DL Corrected Calcium 9.5 8.5-10.1 MG/DL Total Bilirubin 1.0 0.1-1.0 MG/DL Aspartate Amino Transf (AST/SGOT) 39 H 5-34 U/L Alanine Aminotransferase (ALT/SGPT) 72 H 0-55 U/L Alkaline Phosphatase 57 40-136 U/L C-Reactive Protein High Sensitivity 0.36 0.00-0.50 MG/DL Total Protein 7.8 6.4-8.2 GM/DL Albumin 4.4 3.2-4.5 GM/DL Monoscreen NEGATIVE NEGATIVE Group A Streptococcus Screen NEGATIVE NEGATIVE Influenza Type A (RT-PCR) Not Detected Not Detecte Influenza Type B (RT-PCR) Not Detected Not Detecte SARS-CoV-2 RNA (RT-PCR) Not Detected Not Detecte My Orders Orders - VINH POSADA DO Ed Iv/Invasive Line Start (07/22/22 19:21) Monitor-Rhythm Ecg Trace Only (07/22/22 19:21) Cbc With Automated Diff (07/22/22 19:21) Comprehensive Metabolic Panel (07/22/22 19:21) Hs C Reactive Protein (07/22/22 19:21) Monotest (07/22/22 19:21) Rapid Strep A Screen (07/22/22 19:21) Erythrocyte Sedimentation Rate (07/22/22 19:21) Covid 19 Inhouse Test (07/22/22 19:21) Influenza A And B By Pcr (07/22/22 19:21) Isolation Central Supply Req (07/22/22 19:21) Diphenhydramine Injection (Benadryl Inje (07/22/22 19:30) Methylprednisolone Sod Succ (Solu-Medrol (07/22/22 19:30) Famotidine Injection (Pepcid Injection) (07/22/22 19:30) Medications Given in ED Current Medications Medications Dose Ordered Sig/Aleksander Route Start Time Stop Time Status Last Admin Dose Admin Diphenhydramine HCl 50 mg ONCE ONCE IVP 07/22/22 19:30 07/22/22 19:31 DC 07/22/22 19:35 50 MG Famotidine 40 mg ONCE ONCE IVP 07/22/22 19:30 07/22/22 19:31 DC 07/22/22 19:35 40 MG Methylprednisolone Sodium Succinate 125 mg ONCE ONCE IVP 07/22/22 19:30 07/22/22 19:31 DC 07/22/22 19:38 125 MG Vital Signs/I&O 07/22/22 19:08 Temp 36.1 Pulse 92 Resp 18 B/P (MAP) 143/94 (110) Pulse Ox 97 O2 Delivery Room Air Capillary Refill : Progress Note : Progress Note GIVEN: -BENADRYL -PEPCID -SOLU-MEDROL ALL SYMPTOMS RESOLVED AT DISMISSAL. VOICE IS NORMAL. PT STATES HE FEELS MUCH BETTER. PT ABLE TO DRINK WATER WITHOUT DIFFICULTY. REVIEWED PRIOR RECORDS, INCLUDING ER VISITS, ADMITS, H&P'S, TESTS/PROCEDURES, DISCHARGE SUMMARIES DISCUSSED ANTICIPATED COURSE, SYMPTOMATIC TREATMENT, MEDICATIONS, NEED FOR FOLLOW UP AND RETURN PRECAUTIONS WITH PT AND MOTHER Departure Impression Primary Impression: Allergic reaction to food Disposition: HOME, SELF-CARE Condition: Improved Departure-Patient Inst. Decision time for Depature: 20:45 Referrals: YOUNG CASTANEDA MD (PCP/Family) Primary Care Physician Patient Instructions: Food Allergy, Allergy to Nuts or Seeds Add. Discharge Instructions: HOME, REST LOTS OF CLEAR LIQUIDS YOU MAY TAKE BENADRYL 50 MG EVERY 4 HOURS NEEDED FOR SYMPTOMS YOU MAY TAKE PEPCID 40 MG TWICE A DAY NEEDED FOR SYMPTOMS AVOID ANY FOODS WITH TREE NUTS RETURN TO ER IF SYMPTOMS WORSEN / RETURN All discharge instructions reviewed with patient and/or family. Voiced understanding. VINH POSADA DO Jul 22, 2022 19:25
[2022-07-22 19:29] LABS: BASOPHILS % (AUTO) 0 % (0-10); EOSINOPHILS # (AUTO) 0.4 10^3/uL (0.0-0.3); EOSINOPHILS % (AUTO) 5 % (0-10); HEMATOCRIT 46 % (40-54); HEMOGLOBIN 16.3 g/dL (13.3-17.7); LYMPHOCYTES # (AUTO) 2.2 10^3/uL (1.0-4.0); LYMPHOCYTES % (AUTO) 26 % (12-44); MEAN CORPUSCULAR HEMOGLOBIN 29 pg (25-34); MEAN CORPUSCULAR HGB CONC 36 g/dL (32-36); MEAN CORPUSCULAR VOLUME 82 fL (80-99); MEAN PLATELET VOLUME 9.6 fL (9.0-12.2); MONOCYTES # (AUTO) 0.5 10^3/uL (0.0-1.0); MONOCYTES % (AUTO) 7 % (0-12); NEUTROPHILS # (AUTO) 5.2 10^3/uL (1.8-7.8); NEUTROPHILS % (AUTO) 62 % (42-75); PLATELET COUNT 218 10^3/uL (130-400); WHITE BLOOD COUNT 8.4 10^3/uL (4.3-11.0)
[2022-07-22] MEDS ORDERED: diphenhydrAMINE 50 MG/ML INJ (BENADRYL) IVP ONE (19:30)
[2022-07-22] MEDS ORDERED: FAMOTIDINE 20MG/2ML IV (PEPCID) IVP ONE (19:30)
[2022-07-22] MEDS ORDERED: methylPREDNISolone 125 MG (Solu-MEDROL) VIAL IVP ONE (19:30)
[2022-07-22 19:41] LABS: ALBUMIN 4.4 GM/DL (3.2-4.5); POTASSIUM 3.5 MMOL/L (3.6-5.0)
[2022-07-22 19:43] LABS: CALCIUM 9.8 MG/DL (8.5-10.1)
[2022-07-22 19:44] LABS: TOTAL PROTEIN 7.8 GM/DL (6.4-8.2)
[2022-07-22 19:47] LABS: CREATININE SERUM 0.99 MG/DL (0.60-1.30)
[2022-07-22 19:57] LABS: ERYTHROCYTE SEDIMENTATION RATE 4 MM/HR (0-15)
[2022-07-22 20:54] VITALS: BP 133/86
== END 2022-07-22 20:54 | disposition home or self-care (01) ==
LOC: EDUNIT# 19:02 → ER 19:04
DX: R07.0 Pain in throat (principal); T78.1XXA Other adverse food reactions, not elsewhere classified, initial encounter; Z20.822 Contact with and (suspected) exposure to COVID-19
CPT/HCPCS: 36415; 80053; 85025; 85652; 86141; 86308; 87430; 87636; 93041

== ENCOUNTER 2022-09-10 15:17 | Emergency (ER) | payer SELFPAY ==
[~2022-09-10] VITALS: Ht 193 cm; Wt 122.5 kg
--- NOTE | 2022-09-10 15:54 | ED Cough/URI ---
General Chief Complaint: Respiratory Problems Stated Complaint: SOA Nursing Triage Note: PT AMB TO [facility] WITH PARENT WITH C/O SOB X3 WEEKS AND SENT FROM [facility] FOR CT SCAN FOR R/O OF A BLOOD CLOT. PT HAS NOT TAKEN ALBUTEROL TODAY Source: patient Exam Limitations: no limitations History of Present Illness Date Seen by Provider: Sep 10, 2022 Time Seen by Provider: 15:51 Initial Comments Patient is a 22-year-old male who presents ED mother with a history of anxiety, depression, seizure, asthma who presents ED with shortness of breath and cough. Shortness of breath over the past week. Has been using his albuterol inhaler every night and every morning. Shortness of breath with walking with dizziness. Reports greenish sputum production. Denies any chest pain, abdominal pain vomit, diarrhea. Dizziness today. Patient Went to [facility] and was recommended come to the ER for rule out PE. Denies of any leg pain, leg swelling, heart disease, recent travels or surgeries. No specific risk factors for DVT or PE. Patient reports mild scratchy throat. No fever at home. Allergies and Home Medications Allergies Coded Allergies: Penicillins (Verified Allergy, Unknown, 06/15/16) morphine (Verified Allergy, Unknown, 06/15/16) Patient Home Medication List Home Medication List Reviewed: Yes Azithromycin (Azithromycin) 250 Mg Tablet, 250 MG PO UD Prescribed by: DESTINEE LAW on 09/10/22 1708 Brexpiprazole (Rexulti) 0.5 Mg Tablet, (Reported) Entered as Reported by: MICHAEL NELSON on 09/19/16731 Fluoxetine HCl (Fluoxetine HCl) 40 Mg Capsule, 60 MG, (Reported) Entered as Reported by: MICHAEL NELSON on 09/19/16731 Lurasidone HCl (Latuda) 120 Mg Tablet, (Reported) Entered as Reported by: MICHAEL NELSON on 09/19/16731 Review of Systems Review of Systems Constitutional: No chills, No diaphoresis, No fever, No weakness EENTM: No ear discharge, No blurred vision, No double vision Respiratory: cough, short of breath Cardiovascular: No chest pain Gastrointestinal: No abdominal pain, No diarrhea, No vomiting Genitourinary: No decreased output Musculoskeletal: No back pain, No joint pain Skin: No change in color, No change in hair/nails All Other Systems Reviewed Negative Unless Noted: Yes Past Dmmdlop-Yfduas-Snlfgy Hx Patient Social History Tobacco Use?: Yes Use of E-Cig and/or Vaping dev: Yes E-Cig or Vaping type used: Nicotine Substance use?: No Alcohol Use?: Yes Alcohol Frequency: Rarely Pt feels they are or have been: No Immunizations Up To Date Tetanus Booster (TDap): Less than 5yrs PED Vaccines UTD: Yes Influenza Vaccine Up-to-Date: No; Not Current First/Initial COVID19 Vaccinat: yes Second COVID19 Vaccination Caleb: yes Third COVID19 Vaccination Date: yes Seasonal Allergies Seasonal Allergies: No Past Medical History Surgery/Hospitalization HX: pmh: sleep issues, depressio, SEIZURES. ASTHMA, NIGHTMARES Surgeries: No Respiratory: Yes (INTUBATED 2017 DUE TO INTENTIONAL DRUG OVERDOSE) Asthma Cardiac: No Neurological: Yes Seizure Disorder Reproductive Disorders: No Sexually Transmitted Disease: No HIV/AIDS: No Gastrointestinal: Yes Ulcer Musculoskeletal: Yes Scoliosis Endocrine: No HEENT: No Cancer: No Psychosocial: Yes (HX OF DEPRESSION; MULTIPLE SUICIDE ATTEMPTS) Sleep Difficulties, Anxiety, Suicide Attempts, Depression Integumentary: No Blood Disorders: No Adverse Reaction/Blood Tranf: No Family Medical History Abdominal aortic aneurysm Alcoholism Dementia Family history: Arthritis Family history: Asthma Family history: Cardiovascular disease Family history: Hypertension Family history: Thyroid disorder History of - anemia Parkinson's disease Visual impairment No Family History of: Cancer Family history: Coronary thrombosis Family history: Diabetes mellitus Family history: Gastrointestinal disease History of - respiratory disease Kidney disease Seizure disorder Stroke Heart Disease Physical Exam Vital Signs - First Documented 09/10/22 15:33 Temp 36.8 Pulse 98 Resp 16 B/P (MAP) 139/105 (116) Capillary Refill : Height: 6'0" Weight: 200lbs. oz. 90.652260ch; 32.00 BMI Method:Estimated General Appearance: WD/WN, no apparent distress Eyes: Bilateral Eye Normal Inspection, Bilateral Eye PERRL, Bilateral Eye EOMI HEENT: PERRL/EOMI, normal ENT inspection, TMs normal, pharynx normal Neck: non-tender, full range of motion, supple Respiratory: chest non-tender, lungs clear, no respiratory distress, no accessory muscle use, decreased breath sounds Cardiovascular: regular rate, rhythm, no edema, no gallop, no JVD Gastrointestinal: normal bowel sounds, non tender, soft, no organomegaly Extremities: normal range of motion, non-tender, normal inspection, no pedal edema 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3-17.7 g/dL Hematocrit 46 40-54 % Mean Corpuscular Volume 83 80-99 fL Mean Corpuscular Hemoglobin 29 25-34 pg Mean Corpuscular Hemoglobin Concent 35 32-36 g/dL Red Cell Distribution Width 13.0 10.0-14.5 % Platelet Count 192 130-400 10^3/uL Mean Platelet Volume 10.2 9.0-12.2 fL Immature Granulocyte % (Auto) 1 % Neutrophils (%) (Auto) 51 42-75 % Lymphocytes (%) (Auto) 31 12-44 % Monocytes (%) (Auto) 8 0-12 % Eosinophils (%) (Auto) 10 0-10 % Basophils (%) (Auto) 0 0-10 % Neutrophils # (Auto) 3.6 1.8-7.8 10^3/uL Lymphocytes # (Auto) 2.2 1.0-4.0 10^3/uL Monocytes # (Auto) 0.5 0.0-1.0 10^3/uL Eosinophils # (Auto) 0.7 H 0.0-0.3 10^3/uL Basophils # (Auto) 0.0 0.0-0.1 10^3/uL Immature Granulocyte # (Auto) 0.0 0.0-0.1 10^3/uL D-Dimer 0.46 0.00-0.49 UG/ML Sodium Level 138 135-145 MMOL/L Potassium Level 4.2 3.6-5.0 MMOL/L Chloride Level 107 98-107 MMOL/L Carbon Dioxide Level 19 L 21-32 MMOL/L Anion Gap 12 5-14 MMOL/L Blood Urea Nitrogen 13 7-18 MG/DL Creatinine 0.94 0.60-1.30 MG/DL Estimat Glomerular Filtration Rate 116 BUN/Creatinine Ratio 14 Glucose Level 106 H 70-105 MG/DL Calcium Level 9.5 8.5-10.1 MG/DL Corrected Calcium 9.3 8.5-10.1 MG/DL Total Bilirubin 0.5 0.1-1.0 MG/DL Aspartate Amino Transf (AST/SGOT) 30 5-34 U/L Alanine Aminotransferase (ALT/SGPT) 57 H 0-55 U/L Alkaline Phosphatase 64 40-136 U/L Troponin I < 0.028 <0.028 NG/ML Total Protein 7.6 6.4-8.2 GM/DL Albumin 4.2 3.2-4.5 GM/DL My Orders Orders - BRISA RAMIRES Cbc With Automated Diff (09/10/22 15:49) Comprehensive Metabolic Panel (09/10/22 15:49) Fibrin Degradation Products (09/10/22 15:49) Troponin I [place] (09/10/22 15:49) Ekg Tracing (09/10/22 15:49) Albuterol Pre-Mix Nebs (Rt) (Proventil (09/10/22 16:00) Svn Small Volume Nebulizer (09/10/22 15:49) Medications Given in ED Current Medications Medications Dose Ordered Sig/Aleksander Route Start Time Stop Time Status Last Admin Dose Admin Albuterol Sulfate 2.5 mg ONCE ONCE INH 09/10/22 16:00 09/10/22 16:01 DC 09/10/22 16:14 2.5 MG Vital Signs/I&O 09/10/22 15:33 Temp 36.8 Pulse 98 Resp 16 B/P (MAP) 139/105 (116) Capillary Refill : Blood Pressure Mean: 116 ECG Comment Sinus rhythm, 92 bpm, QRS duration 94 MS, QTc 359 MS. Departure Communication (PCP) Reviewed previous ER visits, H&P's, testing. History of asthma. Has been using his albuterol inhaler every morning and evening. Did not use his medication today. Shortness of breath with some mild wheezing and cough for the past 3 weeks. History of allergies. Mother at bedside. Was sent from [facility] for rule out PE. Patient PERC is low risk. Wells criteria low risk. Mother is concerned. Discussed with mother that patient has low risk factors but she wanted to rule out. CBC, CMP, troponin and D-dimer was initiated. She states patient was complaining of dizziness and some chest tightness which I believe is more related to his asthma. Had some subtle wheezing and was given albuterol nebulizer treatment with improvement here. Patient does not take steroids secondary to increased agitation. Normal D-dimer, troponin. CBC and CMP otherwise unremarkable. Discussed these results with mother. They felt reassured at this time. Discussed continue regimen of his albuterol at home. D ue to the continued worsening cough will discharge with azithromycin for any atypical infections. Return precautions were discussed with mother. Patient has no flulike symptoms at this time. Refused COVID influenza swab. Patient afebrile Impression Primary Impression: Asthma exacerbation Additional Impression: URI (upper respiratory infection) Disposition: HOME, SELF-CARE Condition: Stable Departure-Patient Inst. Decision time for Depature: 17:07 Referrals: [facility] (PCP/Family) Primary Care Physician Patient Instructions: Asthma, Adult (DC) Add. Discharge Instructions: Recommend staying on a regular schedule of your albuterol. Take antibiotics as prescribed. If any worsening symptoms return back to ED for further evaluation. May consider taking Zyrtec. Follow-up with PCP in 4 to 5 days for reevaluation. All discharge instructions reviewed with patient and/or family. Voiced understanding. Scripts Azithromycin (Azithromycin) 250 Mg Tablet 250 MG PO UD, #6 TAB TAKE 2 TABLETS ON DAY ONE THEN TAKE 1 TABLET DAILY FOR FOUR MORE DAYS Prov: BRISA RAMIRES 09/10/22 BRISA RAMIRES Sep 10, 2022 15:54
[2022-09-10] MEDS ORDERED: RT-ALBUTEROL SULF 2.5 MG/3 ML PRE-MIX VIAL INH ONE (16:00)
[2022-09-10 16:13] LABS: BASOPHILS % (AUTO) 0 % (0-10); EOSINOPHILS # (AUTO) 0.7 10^3/uL (0.0-0.3); EOSINOPHILS % (AUTO) 10 % (0-10); HEMATOCRIT 46 % (40-54); LYMPHOCYTES # (AUTO) 2.2 10^3/uL (1.0-4.0); LYMPHOCYTES % (AUTO) 31 % (12-44); MEAN CORPUSCULAR HEMOGLOBIN 29 pg (25-34); MEAN CORPUSCULAR HGB CONC 35 g/dL (32-36); MEAN CORPUSCULAR VOLUME 83 fL (80-99); MEAN PLATELET VOLUME 10.2 fL (9.0-12.2); MONOCYTES # (AUTO) 0.5 10^3/uL (0.0-1.0); MONOCYTES % (AUTO) 8 % (0-12); NEUTROPHILS # (AUTO) 3.6 10^3/uL (1.8-7.8); NEUTROPHILS % (AUTO) 51 % (42-75); PLATELET COUNT 192 10^3/uL (130-400); WHITE BLOOD COUNT 7.1 10^3/uL (4.3-11.0)
[2022-09-10 16:26] LABS: ALBUMIN 4.2 GM/DL (3.2-4.5)
[2022-09-10 16:27] LABS: CHLORIDE 107 MMOL/L (98-107); POTASSIUM 4.2 MMOL/L (3.6-5.0); SODIUM 138 MMOL/L (135-145)
[2022-09-10 16:28] LABS: CALCIUM 9.5 MG/DL (8.5-10.1)
[2022-09-10 16:29] LABS: GLUCOSE 106 MG/DL (70-105); TOTAL PROTEIN 7.6 GM/DL (6.4-8.2)
[2022-09-10 16:30] LABS: CARBON DIOXIDE 19 MMOL/L (21-32)
[2022-09-10 16:31] LABS: BILIRUBIN,TOTAL 0.5 MG/DL (0.1-1.0)
[2022-09-10 16:32] LABS: ALKALINE PHOSPHATASE 64 U/L (40-136)
[2022-09-10 16:33] LABS: CREATININE SERUM 0.94 MG/DL (0.60-1.30); GFR ESTIMATED 116
[2022-09-10 16:34] LABS: BUN/CREATININE RATIO 14
[2022-09-10 16:35] LABS: ALANINE AMINOTRANSFERASE 57 U/L (0-55)
[2022-09-10] MEDS ORDERED: AZIT250T12 PO (17:08)
[2022-09-10 17:22] VITALS: BP 141/95
== END 2022-09-10 17:24 | disposition home or self-care (01) ==
LOC: EDUNIT# 15:17 → ER 15:20
DX: J45.901 Unspecified asthma with (acute) exacerbation (principal); J06.9 Acute upper respiratory infection, unspecified; F17.290 Nicotine dependence, other tobacco product, uncomplicated; Z79.51 Long term (current) use of inhaled steroids; Z88.0 Allergy status to penicillin
CPT/HCPCS: 36415; 80053; 84484; 85025; 85379; 93005

== ENCOUNTER 2022-11-06 10:05 | Emergency (ER) | payer MEDICAID ==
[~2022-11-06] VITALS: Ht 193 cm; Wt 123.0 kg
[~2022-11-06 10:05] MED LIST changes: +AZIT250T12 PO
--- NOTE | 2022-11-06 10:32 | ED Lower Extremity ---
General Chief Complaint: Lower Extremity Stated Complaint: LT LEG PAIN | Nursing Triage Note: PT TO RM 6 PT CO OF BACK PAIN FOR A FEW DAY, WAS SEEN BY CHIROPRACTOR TODAY AND TODAY NOTICED SWELLING AND DISCOLORATION OF L LOWER EXT. SL EXT COOL TO TOUCH. PT CO OF PAIN IN L LOWER EXT 04/01 Source: patient, family Exam Limitations: no limitations History of Present Illness Date Seen by Provider: November 06, 2022 Time Seen by Provider: 10:18 Initial Comments 42-year-old male presents emergency department today for discoloration and pain, swelling to his left lower extremity. He said pain and swelling for about a week. Discoloration started today. He has a history of anxiety, no other medical problems. Denies any fevers or chills. No chest pain or shortness of breath. No recent surgeries, long distance travel or periods of immobility. All other systems reviewed and negative except documented per HPI. Voice recognition software was used to help create this chart Allergies and Home Medications Allergies Coded Allergies: Penicillins (Verified Allergy, Unknown, 06/15/16) morphine (Verified Allergy, Unknown, 06/15/16) Patient Home Medication List Home Medication List Reviewed: Yes Discontinued Medications Azithromycin (Azithromycin) 250 Mg Tablet, 250 MG PO UD Discontinued Reason: No Longer Taking Prescribed by: DESTINEE LAW on 09/10/22 1708 Last Action: Discontinued Brexpiprazole (Rexulti) 0.5 Mg Tablet, (Reported) Discontinued Reason: No Longer Taking Entered as Reported by: MICHAEL NELSON on 09/19/16731 Last Action: Discontinued Fluoxetine HCl (Fluoxetine HCl) 40 Mg Capsule, 60 MG, (Reported) Discontinued Reason: No Longer Taking Entered as Reported by: MICHAEL NELSON on 09/19/16731 Last Action: Discontinued Lurasidone HCl (Latuda) 120 Mg Tablet, (Reported) Discontinued Reason: No Longer Taking Entered as Reported by: MICHAEL NELSON on 09/19/16731 Last Action: Discontinued Review of Systems Constitutional: see HPI Past Jbqpegm-Hpkmfh-Wduawa Hx Patient Social History Tobacco Use?: No Smokeless Tobacco Frequency: Current Everyday User Use of E-Cig and/or Vaping dev: Yes E-Cig or Vaping type used: Nicotine Use of E-Cig and/or Vaping Ha: Current Everyday User Substance type: Marijuana Substance frequency: Rarely Alcohol Use?: Yes Alcohol type: Beer Alcohol Frequency: Several times a month Pt feels they are or have been: No Immunizations Up To Date Tetanus Booster (TDap): Less than 5yrs PED Vaccines UTD: Yes Influenza Vaccine Up-to-Date: Yes; Up-to-Date First/Initial COVID19 Vaccinat: yes Second COVID19 Vaccination Caleb: yes Third COVID19 Vaccination Date: yes Seasonal Allergies Seasonal Allergies: No Past Medical History Surgery/Hospitalization HX: pmh: sleep issues, depressio, SEIZURES. ASTHMA, NIGHTMARES Surgeries: No Respiratory: Yes (INTUBATED 2017 DUE TO INTENTIONAL DRUG OVERDOSE) Asthma Cardiac: No Neurological: Yes Seizure Disorder Reproductive Disorders: No Sexually Transmitted Disease: No HIV/AIDS: No Gastrointestinal: Yes Ulcer Musculoskeletal: Yes Scoliosis Endocrine: No HEENT: No Cancer: No Psychosocial: Yes (HX OF DEPRESSION; MULTIPLE SUICIDE ATTEMPTS) Sleep Difficulties, Anxiety, Suicide Attempts, Depression Integumentary: No Blood Disorders: No Adverse Reaction/Blood Tranf: No Family Medical History Reviewed Nursing Family Hx Abdominal aortic aneurysm Alcoholism Dementia Family history: Arthritis Family history: Asthma Family history: Cardiovascular disease Family history: Hypertension Family history: Thyroid disorder History of - anemia Parkinson's disease Visual impairment No Family History of: Cancer Family history: Coronary thrombosis Family history: Diabetes mellitus Family history: Gastrointestinal disease History of - respiratory disease Kidney disease Seizure disorder Stroke Heart Disease Physical Exam Vital Signs Vital Signs - First Documented 11/06/22 10:15 Temp 36.4 Pulse 132 Resp 20 B/P (MAP) 126/83 (97) Pulse Ox 94 O2 Delivery Room Air Capillary Refill : Less Than 3 Seconds Height, Weight, BMI Height: 6'0" Weight: 200lbs. oz. [id number]; 33.00 BMI Method:Estimated General Appearance: WD/WN, no apparent distress HEENT: normal ENT inspection, pharynx normal Neck: non-tender, full range of motion, supple, normal inspection Cardiovascular: no murmur, tachycardia Respiratory: chest non-tender, lungs clear, normal breath sounds, no respiratory distress, no accessory muscle use Gastrointestinal: normal bowel sounds, non tender, soft, no organomegaly Back: normal inspection Hips: left hip other (Left lower extremity is discolored in its entirety. He has pain up into the hip region. There is swelling. I am able to Doppler pulses both DP and PT. It is warm to the touch.) Neurologic/Psychiatric: alert, oriented x 3 Skin: warm/dry, other (Purplish discoloration left lower extremity) Procedures/Interventions Time of ETT Placement: 1654 Progress/Results/Core Measures Results/Orders Lab Results Laboratory Tests Test 11/06/22 10:28 Range/Units White Blood Count 10.6 4.3-11.0 10^3/uL Red Blood Count 5.77 H 4.30-5.52 10^6/uL Hemoglobin 16.8 13.3-17.7 g/dL Hematocrit 49 40-54 % Mean Corpuscular Volume 84 80-99 fL Mean Corpuscular Hemoglobin 29 25-34 pg Mean Corpuscular Hemoglobin Concent 35 32-36 g/dL Red Cell Distribution Width 13.1 10.0-14.5 % Platelet Count 209 130-400 10^3/uL Mean Platelet Volume 9.7 9.0-12.2 fL Immature Granulocyte % (Auto) 1 % Neutrophils (%) (Auto) 57 42-75 % Lymphocytes (%) (Auto) 24 12-44 % Monocytes (%) (Auto) 8 0-12 % Eosinophils (%) (Auto) 10 0-10 % Basophils (%) (Auto) 0 0-10 % Neutrophils # (Auto) 6.0 1.8-7.8 10^3/uL Lymphocytes # (Auto) 2.5 1.0-4.0 10^3/uL Monocytes # (Auto) 0.9 0.0-1.0 10^3/uL Eosinophils # (Auto) 1.0 H 0.0-0.3 10^3/uL Basophils # (Auto) 0.0 0.0-0.1 10^3/uL Immature Granulocyte # (Auto) 0.1 0.0-0.1 10^3/uL Prothrombin Time 13.7 12.2-14.7 SEC INR Comment 1.0 0.8-1.4 Sodium Level 138 135-145 MMOL/L Potassium Level 3.7 3.6-5.0 MMOL/L Chloride Level 104 98-107 MMOL/L Carbon Dioxide Level 20 L 21-32 MMOL/L Anion Gap 14 5-14 MMOL/L Blood Urea Nitrogen 13 7-18 MG/DL Creatinine 1.37 H 0.60-1.30 MG/DL Estimat Glomerular Filtration Rate 74 BUN/Creatinine Ratio 9 Glucose Level 167 H 70-105 MG/DL Calcium Level 10.0 8.5-10.1 MG/DL Corrected Calcium 9.8 8.5-10.1 MG/DL Total Bilirubin 1.0 0.1-1.0 MG/DL Aspartate Amino Transf (AST/SGOT) 23 5-34 U/L Alanine Aminotransferase (ALT/SGPT) 45 0-55 U/L Alkaline Phosphatase 66 40-136 U/L Total Protein 8.2 6.4-8.2 GM/DL Albumin 4.3 3.2-4.5 GM/DL My Orders Orders - IAN SMITH DO Us Left Low Ext Arterial [id number] (11/06/22 10:26) Us Venous Lower Ext Lt (11/06/22 10:26) Cbc With Automated Diff (11/06/22 10:) Protime With Inr (11/06/22 10:) Comprehensive Metabolic Panel (11/06/22 10:26) Iohexol Injection (Omnipaque 350 Mg/Ml 1 (11/06/22 10:45) Received Contrast (Hold Metformin- Contr (11/06/22 10:45) Ns (Ivpb) (Sodium Chloride 0.9% Ivpb Bag (11/06/22 10:45) Ct Angio Chst/Abd/Pelv W (11/06/22 10:26) Heparin Drip [id number] Unit/500ml (Heparin (11/06/22 13:00) Heparin (Bolus Per Protocol) (Heparin (B (11/06/22 13:00) Ketorolac Injection (Toradol Injection) (11/06/22 13:00) Medications Given in ED Current Medications Medications Dose Ordered Sig/Aleksander Route Start Time Stop Time Status Last Admin Dose Admin Iohexol 100 ml ONCE ONCE IV 11/06/22 10:45 11/06/22 10:46 DC 11/06/22 11:27 86 ML Sodium Chloride 100 ml ONCE ONCE IV 11/06/22 10:45 11/06/22 10:46 DC 11/06/22 11:28 80 ML Vital Signs/I&O 11/06/22 10:15 Temp 36.4 Pulse 132 Resp 20 B/P (MAP) 126/83 (97) Pulse Ox 94 O2 Delivery Room Air Blood Pressure Mean: 97 Critical Care Note Critical Care Total Time (minutes) 60 Departure Communication (Admissions) Patient found to have extensive left lower extremity DVT up into his abdomen, maybe up into his IVC based on radiology's interpretation and CT scan. He also has bilateral PE, subsegmental with no evidence of heart strain. He is tachycardic but otherwise hemodynamically stable. Started on heparin. I spoke with Dr. Fulton at [facility]. He recommends transfer for thrombectomy of his leg. Spoke to Dr. Oquendo, hospitalist at [facility]. He accepts the patient in transfer. Pending bed assignment Impression Primary Impression: DVT (deep venous thrombosis) Qualified Codes: I82.412 - Acute embolism and thrombosis of left femoral vein Additional Impression: Pulmonary embolism Qualified Codes: I26.94 - Multiple subsegmental pulmonary emboli without acute cor pulmonale Disposition: XFER SHT-TRM HOSP Condition: Stable Departure-Patient Inst. Referrals: [facility] (PCP/Family) Primary Care Physician IAN SMITH DO November 06, 2022 10:32
[2022-11-06 10:38] LABS: BASOPHILS % (AUTO) 0 % (0-10); EOSINOPHILS % (AUTO) 10 % (0-10); HEMATOCRIT 49 % (40-54); HEMOGLOBIN 16.8 g/dL (13.3-17.7); LYMPHOCYTES # (AUTO) 2.5 10^3/uL (1.0-4.0); LYMPHOCYTES % (AUTO) 24 % (12-44); MEAN CORPUSCULAR HEMOGLOBIN 29 pg (25-34); MEAN CORPUSCULAR HGB CONC 35 g/dL (32-36); MEAN CORPUSCULAR VOLUME 84 fL (80-99); MEAN PLATELET VOLUME 9.7 fL (9.0-12.2); MONOCYTES # (AUTO) 0.9 10^3/uL (0.0-1.0); MONOCYTES % (AUTO) 8 % (0-12); NEUTROPHILS % (AUTO) 57 % (42-75); PLATELET COUNT 209 10^3/uL (130-400); WHITE BLOOD COUNT 10.6 10^3/uL (4.3-11.0)
[2022-11-06 10:42] LABS: ALBUMIN 4.3 GM/DL (3.2-4.5)
[2022-11-06 10:43] LABS: POTASSIUM 3.7 MMOL/L (3.6-5.0)
[2022-11-06 10:45] LABS: TOTAL PROTEIN 8.2 GM/DL (6.4-8.2)
[2022-11-06] MEDS ORDERED: IOHEXOL 350 MG/ML 100 ML (OMNIPAQUE 350) VIAL IV ONE (10:45)
[2022-11-06] MEDS ORDERED: HOLD METFORMIN - RECEIVED CONTRAST 20 ML VIAL IV SCH (10:45)
[2022-11-06] MEDS ORDERED: NS 100 ML (IVPB) BAG IV ONE (10:45)
[2022-11-06 10:47] LABS: PROTHROMBIN TIME PATIENT 13.7 SEC (12.2-14.7)
[2022-11-06 10:49] LABS: CREATININE SERUM 1.37 MG/DL (0.60-1.30)
--- NOTE | 2022-11-06 12:26 | Diagnostic Imaging Report ---
PROCEDURE: US left lower extremity venous. TECHNIQUE: Multiple real-time grayscale images were obtained over the left lower extremity in various projections. Additional duplex Doppler and color Doppler images were also obtained. INDICATION: Pain and swelling and discoloration of the left lower extremity COMPARISON: None FINDINGS: There is occlusive deep venous thrombosis involving the left common femoral vein and proximal greater saphenous vein. This continues to extend into the femoral vein and popliteal vein. There is thrombus in the left peroneal vein, posterior tibial vein. Thrombus also extends into the left iliac vein. IMPRESSION: 1. Occlusive deep venous thrombosis from at least the left iliac vein down through the entire left lower extremity into the calf. Findings reported to Dr. Peck by the field machinist following the examination. Dictated by: Dictated on workstation # [id number]
--- NOTE | 2022-11-06 12:27 | Diagnostic Imaging Report ---
HISTORY: Pain, swelling, and discoloration of the left lower extremity. COMPARISON: None. TECHNIQUE: Grayscale, color Doppler, and spectral Doppler ultrasound was performed of the arterial structures in the left lower extremity. FINDINGS: There is a triphasic waveform throughout the left lower extremity with the exception of the deep femoral artery and dorsalis pedis which have biphasic waveforms. The common femoral artery velocity is 110 cm/s. The deep femoral artery measures 62 cm/s. The superficial femoral artery ranges between 57 and 71 cm/s. The popliteal artery measures 23 cm/s. The posterior tibial artery measures 28 cm/s. IMPRESSION: No high-grade arterial stenosis or occlusion in the left lower extremity. Dictated by: Dictated on workstation # [id number]
--- NOTE | 2022-11-06 12:43 | Diagnostic Imaging Report ---
PROCEDURE: CT angiography of the chest with contrast and CT abdomen and pelvis with contrast. TECHNIQUE: Multiple contiguous axial images were obtained through the chest, abdomen and pelvis after administration of intravenous contrast. 3D MIP reconstructed CT angiography acquisitions of the aorta were then performed. Auto Exposure Controls were utilized during the CT exam to meet ALARA standards for radiation dose reduction. INDICATION: Tachycardia, likely lower extremity deep vein thrombosis COMPARISON: 07/03/2016 FINDINGS: CTA CHEST: The pulmonary arteries are diagnostic to the segmental level. There are pulmonary emboli in the right middle lobe, right lower lobe, left lower lobe and left upper lobe. These are mostly nonocclusive but there do appear to be some occlusive emboli in the left lower lobe. There is no central pulmonary embolus and no evidence of right heart strain. The heart is normal in size. There is no pericardial effusion. No mediastinal adenopathy is seen. The aorta is normal in caliber. There is a small hiatal hernia. No lymphadenopathy is seen. There is no pleural effusion. Scattered groundglass opacities are seen in the lower lobes and right upper lobe. No central endobronchial lesion is seen. No acute osseous abnormality is seen. CT abdomen and pelvis: The liver demonstrates fatty infiltration, with focal areas of sparing but no definite lesions are seen. The spleen appears normal. The pancreas is normal. The adrenal glands appear normal. The kidneys are unremarkable. The bowel loops are nondistended without obstruction. There is moderate stool in the colon. The appendix is normal. No free fluid or free air is seen. The urinary bladder is mildly distended. The aorta is normal in caliber. There is mild enlargement and surrounding edema of the left common and external iliac veins. No acute osseous abnormality is seen. IMPRESSION: 1. Pulmonary emboli in the lungs bilaterally. No evidence of right heart strain. 2. Enlargement and surrounding edema of the left common and external iliac veins, likely secondary to deep vein thrombosis. 3. Groundglass opacities in the lungs bilaterally, could be due to infiltrate, atelectasis or scarring. 4. Hepatic steatosis. 5. Small hiatal hernia. Findings discussed with IAN SMITH DO by Dr. Watson, on 11/06/2022 12:32 PM. Dictated by: Dictated on workstation # [id number]
[2022-11-06] MEDS ORDERED: HEParin 1000 UNIT/ML (10ML VIAL) FOR BOLUS IV ONE (13:00)
[2022-11-06] MEDS ORDERED: HEParin DRIP 25000 UNIT/500ML 500 ML IV ONE ×2 (13:00→13:30)
[2022-11-06] MEDS ORDERED: KETOROLAC 15 MG/ML VIAL IVP ONE (13:00)
[2022-11-06] MEDS ORDERED: HEParin 1000 UNIT/ML (10ML VIAL) FOR BOLUS ONE (13:14)
[2022-11-06 15:05] VITALS: BP 127/82
== END 2022-11-06 15:46 | disposition short-term general hospital (02) ==
LOC: EDUNIT# 10:05 → ER 10:08
DX: I82.402 Acute embolism and thrombosis of unspecified deep veins of left lower extremity (principal); I26.94 Multiple subsegmental thrombotic pulmonary emboli without acute cor pulmonale; F17.290 Nicotine dependence, other tobacco product, uncomplicated
CPT/HCPCS: 36415; 71275; 74174; 80053; 85025; 85610; 93926

== ENCOUNTER 2023-04-04 15:05 | Outpatient (CLI) | payer MEDICAID | END 2023-04-04 15:35 | LOC: RT 15:05 | PROVIDERS: ATTEND Family Medicine | DX: G47.33 Obstructive sleep apnea (adult) (pediatric) (principal); G47.10 Hypersomnia, unspecified; G47.61 Periodic limb movement disorder; R06.83 Snoring; F06.30 Mood disorder due to known physiological condition, unspecified | CPT/HCPCS: G0399 ==